=== PATIENT | female | born 1980 | race African-American/Black ===

== ENCOUNTER 2023-04-29 23:16 | Observation (INO) | payer BC, SELFPAY ==
[2023-04-30] VITALS: BP 121/79; PULSE 104
[2023-04-30 00:15] VITALS: BP 131/81; PULSE 98
[2023-04-30 00:30] VITALS: BP 122/87; PULSE 93
[2023-04-30 00:30] LABS: Appearance Urine Cloudy (Clear); Bacteria Urine Rare /hpf; Bilirubin Urine Negative (Negative); Blood Urine Negative (Negative); Color Urine Yellow (Yellow); Glucose Urine UA Negative (Negative); Ketones Urine 1+ mg/dL (Negative); Leukocyte Esterase Ur Trace LEU/UL (NEGATIVE); Nitrate Urine Negative (Negative); Non Pathogenic Casts 0-2; Protein Urine Negative (Negative); RBC Urine 0-2 /hpf (0-2); Specific Grav Ur 1.016 (1.001-1.035); Squamous Epithelial Cell Urine Moderate /hpf (Few); Urobilinogen Urine 0.2 mg/dL (<2.0); WBC Urine 0-5 /hpf (0-3)
[2023-04-30 00:34] LABS: Add Urine Microscopic? YES
[2023-04-30 00:45] VITALS: BP 120/83; PULSE 95
[2023-04-30] MEDS: CYCLOBENZAPRINE HCL 10 MG TABLET PO (01:00)
[2023-04-30 01:01] VITALS: BP 111/80; PULSE 97
[2023-04-30 01:30] VITALS: BMI 33.5
--- NOTE | 2023-04-30 01:30 | OBADM ---
This patient, Ludivina Covarrubias, admitted to the OB room [facility] for observation. Patient/family oriented to hospital policies and general routines including ID bracelet, bed and alarms, visiting hours, pain management, procedures, bathroom and other care routines, personal items, smoking policy, room service/diet, and visiting hours. Patient/Family are encouraged to report perceived risks to care and to ask questions if they do not understand what they are told or what they should do.
--- NOTE | 2023-05-11 21:53 | PM.OBTRLD ---
OB - Triage/Final Diagnosis Visit Information Comments/Additional reasons for admission: I have assessed the risk for this patient, Ludivina Covarrubias, and determined that she would benefit from observation care. Evaluation Laboratory results: Laboratory Tests 04/30/23 00:19 Urine Color Yellow Urine Appearance Cloudy H Urine pH 6.0 Ur Specific [place] 1.016 Urine Protein Negative Urine Glucose (UA) Negative Urine Ketones 1+ H Ur Blood (Man) Negative Urine Nitrate Negative Urine Bilirubin Negative Urine Urobilinogen 0.2 Ur Leukocyte Esterase Trace H Urine RBC 0-2 Urine WBC 0-5 Ur Squamous Epith Cells Moderate Urine Bacteria Rare Urine Casts 0-2 Final Diagnosis (1) Flank pain: Code(s): R10.9 - Unspecified abdominal pain Status: Acute
== END 2023-04-30 02:41 | disposition other institution (70) ==
PROVIDERS: Admitting Provider Obstetrics & Gynecology; Visit Provider Obstetrics & Gynecology
DX: O26.893 Other specified pregnancy related conditions, third trimester (principal); R10.9 Unspecified abdominal pain; Z3A.36 36 weeks gestation of pregnancy
CPT/HCPCS: 81001; 87086; 87088; A9270; G0378; G0379

== ENCOUNTER 2023-04-30 02:42 | Emergency (ER) | payer BC, SELFPAY ==
[2023-04-30 02:48] VITALS: BP 130/83; PULSE 102; RESP 20; TEMP 37; O2SAT 96
--- NOTE | 2023-04-30 02:59 | PC.NURSE ---
patient states she does not want to wait any longer and left from triage area
== END 2023-04-30 03:00 | disposition left against medical advice (07) ==
LOC: ANHED 03:50
DX: M54.50 Low back pain, unspecified (principal)
CPT/HCPCS: 99199